=== PATIENT | female | born 2000 | race Caucasian/White ===

== ENCOUNTER 2022-12-26 12:12 | Outpatient (CLI) | payer BC, SELFPAY ==
--- NOTE | 2022-12-26 12:27 | US_ITS ---
WS: [id number] EARLY OBSTETRICAL ULTRASOUND (<14 WEEKS). HISTORY: ENCOUNTER FOR SUPERVISION OF NORMAL FIRST COMPARISON: None available. Single intrauterine gestational sac is identified. Cardiac activity at 153 BPM. [place]-rump length ari sures 1.7 cm which corresponds to a gestation of 8w1d. Normal-appearing yolk sac and amnion demonstra josi. No subchorionic hemorrhage. No free fluid. Normal size ovaries. Corpus luteal cyst associated with the RIGHT ovary measures 1.8 x 1.7 x 1.6 cm. US/US OB <=14 wk fetus w transvag IMPRESSION: 1. Single intrauterine gestation of 8 weeks 1 day with an EDC of 08/06/2023. 2. Normal cardiac activity.
== END 2022-12-26 12:13 | disposition home or self-care (01) ==
LOC: RAD 12:20
PROVIDERS: PCP Family Medicine; Visit Provider Family Medicine
DX: Z34.01 Encounter for supervision of normal first pregnancy, first trimester (principal)
CPT/HCPCS: 76801; 76817

== ENCOUNTER 2023-03-08 13:17 | Outpatient (CLI) | payer OTHER, SELFPAY ==
--- NOTE | 2023-03-08 13:22 | US_ITS ---
WS: [id number] OBSTETRICAL ULTRASOUND COMPLETE HISTORY: ANATOMY CHECK COMPARISON: 12/26/2022 Overall this examination is compromised by maternal body habitus. Single intrauterine gestation in Cephalic presentation. Cervix is not well visualized. Normal amount of amniotic fluid surrounds the fetus. Placenta: Anterior, no previa or abruption. Placenta grade 0 Heart: 153 BPM. 4 chambers are not identified. No outflow tracks submitted. Anatomy: Limited evaluation of intracranial structures and spine. Remaining anatomy is significantly limited. The stomach is identified. measurements: BPD = 4.3 cm = 19w0d; HC = 15.6 cm = 18w4d; AC = 13.1 cm = 18w4d; FL = 2.8 cm = 18w4d; EFW: 249 g. Not available. Biometry is internally concordant. AGA by ultrasound: 18w5d NATALI by ultrasound: 08/04/2023 US/US OB >= 14 weeks fetus [id number] IMPRESSION: 1. Single intrauterine gestation of 18w5d with an NATALI of 08/04/2023. Appropria te growth since the first trimester ultrasound. 2. Overall very limited evaluation of anatomy predominantly due to mater nal body habitus. Consider complete reevaluation of anatomy in 3-4 weeks. Otherwise evaluation by maternal- medicine.
== END 2023-03-08 13:18 | disposition home or self-care (01) ==
PROVIDERS: PCP Family Medicine; Visit Provider Family Medicine
DX: Z34.02 Encounter for supervision of normal first pregnancy, second trimester (principal)
CPT/HCPCS: 76805

== ENCOUNTER 2023-05-14 09:25 | Outpatient (CLI) | payer OTHER, SELFPAY ==
--- NOTE | 2023-05-14 09:31 | US_ITS ---
WS: [email or web address] OBSTETRICAL ULTRASOUND COMPLETE HISTORY: MATERNAL OBESITY COMPLICATING COMPARISON: 03/08/2023 and 12/26/2022 Single intrauterine gestation in breech presentation. Cervix is Closed and normal length. Cervical length is 4.3 cm. Normal amount of amniotic fluid surrounds the fetus. Placenta: Anterior, no previa or abruption. Placenta grade 1 Heart: 141 BPM. 4 chambers are identified. Valve plane is difficult to visualize. Outflow tracts cont inued to be limited. Anatomy: Intracranial structures and spine are normal. kidneys, stomach and urinary bladd er are unremarkable. Abdominal wall, three-vessel cord and cord insertion site are normal. 4 extremities are present. profile: Limited. Gender: Female measurements: BPD = 7.1 cm = 28w4d; 58% HC = 26.8 cm = 29w1d; 56% AC = 24.1 cm = 28w2d; 53% FL = 5.5 cm = 28w6d; 63% EFW: 1252 g. 62% Biometry is internally concordant. AGA by ultrasound: 28w5d NATALI by ultrasound: 08/01/2023 Appropriate growth since the first trimester ultrasound. IMPRESSION: 1. Single intrauterine gestation of 28w5d with an NATALI of 08/01/2023. Appropriate growth since the fi rst trimester ultrasound. No growth asymmetry. 2. Continued limited quality evaluation of the anatomy. Limited visualization of the heart and outfl ow tracts. Overall quality continues to be limited. No abnormality is identified.
== END 2023-05-14 09:26 | disposition home or self-care (01) ==
LOC: RAD 09:26
PROVIDERS: PCP Family Medicine; Visit Provider Family Medicine
DX: O99.213 Obesity complicating pregnancy, third trimester (principal); E66.9 Obesity, unspecified; Z3A.28 28 weeks gestation of pregnancy
CPT/HCPCS: 76816

== ENCOUNTER 2023-05-18 18:57 | Outpatient (CLI) | payer OTHER, SELFPAY ==
[2023-05-18 19:19] VITALS: BP 135/65; PULSE 90
[2023-05-18 19:20] VITALS: RESP 17; TEMP 36.4
[2023-05-18 19:28] VITALS: TEMP 36.4
[2023-05-18 19:32] VITALS: BMI 58.5
[2023-05-18 20:11] VITALS: BP 121/56; PULSE 86
[2023-05-18 20:20] VITALS: BP 121/56; PULSE 86; RESP 16; TEMP 36.4
== END 2023-05-18 20:23 | disposition home or self-care (01) ==
LOC: OPOB 18:58 → OBGYN 18:58
PROVIDERS: PCP Family Medicine; Visit Provider Family Medicine
DX: O36.8190 Decreased fetal movements, unspecified trimester, not applicable or unspecified (principal); Z3A.00 Weeks of gestation of pregnancy not specified; Z91.81 History of falling
CPT/HCPCS: 59025; 99211

== ENCOUNTER 2023-06-12 09:03 | Outpatient (CLI) | payer OTHER, SELFPAY ==
--- NOTE | 2023-06-12 | US_ITS ---
WS: [email or web address] LIMITED OBSTETRICAL ULTRASOUND HISTORY: GROWTH SCAN COMPARISON: 05/14/2023, 12/26/2022 Presentation: Vertex. Cervix: Closed and normal length. Placenta: Anterior, no previa or abruption. Grade: 1 HEART: FHR of 153 BPM. measurements: BPD = 7.9 cm = 31w6d; 33% HC = 30.0 cm = 33w2d; 42% AC = 29.6 cm = 33w4d; 86% FL = 6.2 cm = 32w1d; 36% Normal amniotic fluid. Largest vertical pocket greater than 5 cm. EFW: 2084 g; 70th percentile AGA by ultrasound: 32w5d NATALI by ultrasound: 08/02/2023 IMPRESSION: 1. Single intrauterine gestation of 32 weeks 5 days with an EDC of 08/02/2023. Appropriate growth of the fetus since the first trimester ultrasound. 2. Estimated weight at the 70th percentile. 3. Abdominal circumference at the 86th percentile for age.
== END 2023-06-12 09:04 | disposition home or self-care (01) ==
LOC: RAD 09:05
PROVIDERS: PCP Family Medicine; Visit Provider Family Medicine
DX: Z34.83 Encounter for supervision of other normal pregnancy, third trimester (principal); Z3A.32 32 weeks gestation of pregnancy
CPT/HCPCS: 76816

== ENCOUNTER 2023-07-09 15:30 | Outpatient (CLI) | payer OTHER, SELFPAY ==
[2023-07-09 15:35] VITALS: BMI 64.8
[2023-07-09 15:45] VITALS: RESP 18; TEMP 36.3
[2023-07-09 15:46] VITALS: BP 139/76; PULSE 106
[2023-07-09 16:06] VITALS: BP 113/69; PULSE 105
[2023-07-09 16:12] LABS: Actim Prom Negative; Nitrazine Paper, PH Negative
== END 2023-07-09 16:25 | disposition home or self-care (01) ==
LOC: OPOB 15:36 → OBGYN 15:37
PROVIDERS: Absent Provider Family Medicine; PCP Family Medicine; Visit Provider Family Medicine
DX: O26.899 Other specified pregnancy related conditions, unspecified trimester (principal); Z3A.00 Weeks of gestation of pregnancy not specified; N89.8 Other specified noninflammatory disorders of vagina
CPT/HCPCS: 59025; 83986; 84112; 99211

== ENCOUNTER 2023-07-10 08:55 | Outpatient (CLI) | payer OTHER, SELFPAY ==
--- NOTE | 2023-07-10 09:01 | US_ITS ---
WS: [email or web address] LIMITED OBSTETRICAL ULTRASOUND HISTORY: GROWTH CHECK/3RD TRIMESTER/MATERNAL OBESTIY COMPARISON: 06/12/2023, 12/26/2022 Presentation: Vertex. Cervix: Not visualized. Placenta: Anterior, no previa or abruption. Grade: 1 HEART: FHR of 144 BPM. measurements: BPD = 8.9 cm = 36w0d; 55% HC = 32.5 cm = 36w6d; 37% AC = 32.0 cm = 36w0d; 56% FL = 7.0 cm = 35w5d; 42% Amniotic fluid is normal. EFW: 2825 g; 63% AGA by ultrasound: 36w1d NATALI by ultrasound: 08/06/2023 IMPRESSION: 1. Single intrauterine gestation of 36 weeks 1 day with an EDC of 08/06/2023. 2. Normal growth since the first trimester ultrasound and also the most recent. 3. Normal biometry. No growth restriction or large for gestational age fetus. 4. Estimated weight at the 36th percentile.
== END 2023-07-10 08:56 | disposition home or self-care (01) ==
LOC: RAD 08:55
PROVIDERS: PCP Family Medicine; Visit Provider Family Medicine
DX: Z36.89 Encounter for other specified antenatal screening (principal); O99.213 Obesity complicating pregnancy, third trimester; E66.9 Obesity, unspecified; Z3A.36 36 weeks gestation of pregnancy
CPT/HCPCS: 76816

== ENCOUNTER 2023-07-19 12:39 | Outpatient (CLI) | payer OTHER, SELFPAY ==
--- NOTE | 2023-07-19 12:46 | US_ITS ---
WS: [email or web address] Exam: US OB BPP wo NST [id number] Date/Time of Exam: 07/19/2023 12:51 PM Reason For Exam: MATERNAL OBESITY COMPLICATING Viable intrauterine with single cephalic fetus is noted. Biophysical profile score as follows: Amniotic fluid volume 2 tone 2 body movement 2 breathing movement 2 A total of 8/8 points Heart rate 160 bpm. Anterior placenta without previa or abruption. IMPRESSION: Biophysical profile score of 8 of possible 8 points.
== END 2023-07-19 12:40 | disposition home or self-care (01) ==
LOC: RAD 12:39
PROVIDERS: PCP Family Medicine; Visit Provider Family Medicine
DX: O99.210 Obesity complicating pregnancy, unspecified trimester (principal); Z3A.00 Weeks of gestation of pregnancy not specified
CPT/HCPCS: 76819

== ENCOUNTER 2023-07-19 13:25 | Outpatient (CLI) | payer OTHER, SELFPAY ==
[2023-07-19 13:30] VITALS: BMI 64.7
[2023-07-19 13:38] VITALS: BP 133/66; PULSE 106
[2023-07-19 13:59] VITALS: BP 134/66; PULSE 98
[2023-07-19 14:39] VITALS: BP 134/66; PULSE 98; RESP 18
== END 2023-07-19 14:20 | disposition home or self-care (01) ==
LOC: OPOB 13:28 → OBGYN 13:29
PROVIDERS: PCP Family Medicine; Visit Provider Family Medicine
DX: O99.210 Obesity complicating pregnancy, unspecified trimester (principal); Z3A.00 Weeks of gestation of pregnancy not specified
CPT/HCPCS: 59025; 99211

== ENCOUNTER 2023-07-22 13:28 | Inpatient (IN) | payer OTHER, SELFPAY ==
[2023-07-22] VITALS (129 sets, daily range): BP systolic 80–145; BP diastolic 44–94; PULSE 74–133; RESP 16–18; TEMP 35.9–36.9; O2SAT 99–100; BMI 64.3
[2023-07-22 09:10] LABS: Basophils % 0.2 %; Eosinophils % 0.1 %; Hematocrit 34.5 % (36-47); Lymphocytes # 1.3 10^3/uL (0.8-4.8); Lymphocytes % 10.4 %; Mean Corpuscular HGB Conc 31.9 g/dL (30-55); Mean Corpuscular Hemoglobin 26.6 pg (27-33); Mean Corpuscular Volume 83.5 fl (85-98); Mean Platelet Volume 11.4 fL (7.4-10.4); Monocytes # 1.1 10^3/uL (0.2-0.9); Monocytes % 8.5 %; Neutrophils # 9.93 10^3/uL (1.8-7.7); Neutrophils % 80.4 %; Nucleated Red Blood Cells % 0 %; Platelet Count 339 10^3/cmm (157-399); Red Blood Count 4.13 10^6/uL (3.85-5.65); Red Cell Distribution Width 14.2 % (12.1-15.1); White Blood Count 12.36 10^3/uL (3.29-11.43)
[2023-07-22] MEDS: oxytocin 30 UNIT/500 ML BAG IV (09:30)
[2023-07-22] MEDS: dextrose 5%-lactated ringers 1,000 ML 125 ML IV ×3 (09:30→22:52)
[2023-07-22] MEDS: lactated ringers 1,000 ML 999 ML IV (12:15)
[2023-07-22] MEDS: ROPivacaine syringe 100 MG/50 ML SYRINGE 13 MG EPIDURAL ×4 (12:16→22:04)
--- NOTE | 2023-07-22 12:43 | P.HP_ITS ---
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 Reports irregular contractions starting last night followed by a large gush of clear fluids at about 6:30 this morning. Following she continued to leak fluids and decided to come in. Contractions stopped after her water broke. PMHx includes depression/anxiety and obesity. course complicated by obesity. Denies vaginal bleeding. Good movement. care was good and starting in first trimester. On presentation to L&D found to be grossly ruptured with clear fluids. Present Details : 1 Labs Blood type OB HPI: A (+) positive Rubella: Immune RPR: Negative GBS: Negative HBsAG: Negative Other Lab Information: HCB Ab NR Rubella immune HIV negative GC/chlam negative Initial H/H 13.8/41.4 UCx negative Pap smear NILM Early 1 hr GTT 80 1 hr GTT 164 3 hr GTT 92/105/164/60 3rd trimester H/H 11.5/34.6 Review of Systems 2 Const: Denies: fever(s) or chills Card: Denies: chest pain or palpitations Resp: Denies: dyspnea or productive cough Skin/Breast: Denies: rash or pruritus Medications/Allergies Home Medications Medication Instructions Recorded Confirmed Last Taken Type Lexapro 05/18/23 07/22/23 06:45 History 1 tab PO DAILY 05/18/23 05/18/23 07/22/23 06:45 History bupropion HCl 05/18/23 07/22/23 06:45 History Pepcid 07/22/23 07/22/23 06:45 History Allergies Allergy/AdvReac Type Severity Reaction Status Date / Time No Known Allergies Allergy Verified 05/18/23 21:34 History History History 2 1 Term Miscarriages/Ectopic Living Children 0 Vitals/I&O/Wt Last Vital Signs Temp 98.3 F 07/22/23 11:34 Pulse 102 H 07/22/23 12:38 Resp 18 07/22/23 08:00 BP 145/70 07/22/23 12:38 O2 Del Method Room Air 07/22/23 08:00 07/21/23 07/22/23 07/22/23 22:59 06:59 14:59 Intake Total 7.0 / 7.0 Balance 7.0 / 7.0 Weight last 48 hrs Weight 375 lb Physical Exam 2 Const: COMMON NORMALS: no acute distress and alert OTHER: obese Resp: COMMON NORMALS: normal respiratory effort, No retractions and clear to auscultation bilaterally Cardio: COMMON NORMALS: no JVD, regular rate, regular rhythm, S1 normal heart sound present and S2 normal heart sound present : OTHER: uterine fundus consistent with dates Extremity: OTHER: trace LE edema Psych: COMMON NORMALS: mental status grossly normal, normal affect and speech normal Data 07/22/23 08:57 Results Labs OB ([facility]): 2 Obstetrics US 07/10/23 Obstetrics US/Biophysical Profile Blood Type A Positive 07/22/23 Antibody Screen Negative 07/22/23 Hct 34.5 % (36-47) L 07/22/23 Hgb 11.00 g/dL (11.27-16.99) L 07/22/23 Rho(D) Type Rh positive 07/22/23 Plt Count 339 10^3/cmm (157-399) 07/22/23 Hep Bs Antibody 3.5 (11.5-1000) L 07/25/22 Rubella IgG Antibody 177.3 IU/mL (0.0-10.0) H 07/25/22 VZV IgG Antibody 330.00 index 07/25/22 A&P Assessment and plan (1) Term : (2) Obesity affecting in third trimester: (3) Spontaneous rupture of amniotic membranes: Plan 23yo at 37w6d admitted for SROM. Routine CBC, Type and Screen. Start pitocin. Continuous EFM. Fentanyl protocol for pain, may have epidural when desired. Category 1 FHT. Attestations 2 Medical Necessity Statement*: Ashley Fam's hospital stay will require greater than 2 midnights for routine labor and delivery and care. Coding Level of Care Code Acute Code for Chg Fwd Diagnoses Term Z34.90 Obesity affecting in third trimester O99.213 Spontaneous rupture of amniotic membranes
--- NOTE | 2023-07-22 13:13 | P.ANESASSM_ITS ---
Pre-Anesthetic Assessment Height/Weight: Height 1.63 m Weight 170.097 kg Temp Pulse Resp BP Pulse Ox O2 Del Method 98.3 F 88 18 90/54 100 Room Air 07/22/23 11:34 07/22/23 13:08 07/22/23 08:00 07/22/23 13:08 07/22/23 12:58 07/22/23 08:00 Familial anesthetic complications: none Was Beta Gaby taken within 24 hours: N/A Was Clonidine taken within 24 hours: N/A Social No alcohol and No tobacco Exam alert, oriented x 3, clear to auscultation bilaterally and regular rate & rhythm Airway Submandibular: within normal limits Cervical ROM: within normal limits Mallampati: Class II Dentition: full Metabolic Morbid Obesity Anesthetic Plan ASA status: 3 Anesthesia: Regional (specify below) (Labor epidural) Medications/Allergies Home Medications Medication Instructions Recorded Confirmed Last Taken Type Lexapro 05/18/23 07/22/23 06:45 History 1 tab PO DAILY 05/18/23 05/18/23 07/22/23 06:45 History bupropion HCl 05/18/23 07/22/23 06:45 History Pepcid 07/22/23 07/22/23 06:45 History Allergies Allergy/AdvReac Type Severity Reaction Status Date / Time No Known Allergies Allergy Verified 05/18/23 21:34 Current Medications Generic Name Dose Route Start Last Admin Trade Name Freq PRN Reason Stop Dose Admin Dextrose/Lactated Ringer's 1,000 mls @ 125 mls/hr 07/22/23 08:15 07/22/23 09:30 Dextrose 5%-Lactated Ringers IV 125 mls/hr .Q8H MARCOS Administration Oxytocin 30 unit in 500 mls @ 1 mls/hr 07/22/23 09:00 07/22/23 11:30 Pitocin IV 6 milliunit/min .Q24H MARCOS 6 mls/hr Titration Protocol 1 MILLIUNIT/MIN Lactated Ringer's 1,000 mls @ 999 mls/hr 07/22/23 12:03 07/22/23 12:15 Lactated Ringers IV 999 mls/hr .Q1H1M PRN Administration See label comments Ropivacaine 100 mg in 50 mls @ 10 mls/hr 07/22/23 12:15 07/22/23 12:16 Naropin Syringe EPIDURAL 13 mls/hr .Q5H MARCOS Administration PFSH Anesthesia Female Reproductive History : 1 Data Anesthesia 07/22/23 08:57 Short CBC 07/22/23 Range/Units 08:57 WBC 12.36 H (3.29-11.43) 10^3/uL Hgb 11.00 L (11.27-16.99) g/dL Hct 34.5 L (36-47) % MCV 83.5 L (85-98) fl Plt Count 339 (157-399) 10^3/cmm Neut % (Auto) 80.4 % Neut # (Auto) 9.93 H (1.8-7.7) 10^3/uL Blood Bank 07/22/23 08:57 Blood Type A Positive Rho(D) Type Rh positive Antibody Screen Negative Cardiac Studies: 2 No Data to Display Anesthesia Procedures Epidural Time Out Performed: Yes Consents Signed: Procedure Consent Consent: requested by attending/covering physician, from patient, risks and benefits reviewed and patient agrees to proceed Lumbar Level: L3-L4 Epidural position: sitting Epidural procedure: sterile prep of area, 1% lidocaine to numb the area, 18 g needle, neg for paresthesia, test dose given, 1.5% xylocaine 1:200k epi, placed PCEA, no systemic response, sterile dressing applied and 0.2% Ropiavacaine @ mls/hr (13) Additional Comments: SHILOH at 9cm, cath at 14cm, bolused 5mls of 2% lido PF
[2023-07-22] MEDS: ePHEDrine 50 mg/mL Inj 10 MG IVP (13:19)
[2023-07-22] MEDS: ondansetron 2 mg/ML SDV 2 mL 4 MG IVP ×2 (13:25→19:38)
--- NOTE | 2023-07-22 14:38 | PC.NURSE ---
cassette started out with only 25 in it, unsure how it leaked out before placed in pump, witnessed by yaquelin stapleton rn.
[2023-07-23] VITALS (119 sets, daily range): BP systolic 92–147; BP diastolic 50–87; PULSE 66–190; RESP 17; TEMP 36.4–36.8; O2SAT 93–100
[2023-07-23] MEDS: ROPivacaine syringe 100 MG/50 ML SYRINGE 13 MG EPIDURAL ×6 (00:50→18:51)
[2023-07-23] MEDS: ondansetron 2 mg/ML SDV 2 mL 4 MG IVP (00:54)
[2023-07-23] MEDS: dextrose 5%-lactated ringers 1,000 ML 125 ML IV ×2 (07:28→14:53)
[2023-07-23] MEDS: acetaminophen 325 mg Tablet 650 MG PO (08:12)
[2023-07-23] MEDS: oxytocin 30 UNIT/500 ML BAG 27 UNIT IV (11:28)
--- NOTE | 2023-07-23 17:34 | PM.OBGYPN ---
RN TRANSITIONAL Subjective Subjective: Interval history: Doing well. Epidural has been effective all day. Feeling more pressure in her bottom. Denies any new complaints. Has been changing positions regularly. Labor: Station: 0 Amniotic Membrane Status: Ruptured Monitor Mode: External Contraction Pattern: Regular Vitals/I&O/Wt Last Vital Signs Temp 97.5 F L 07/23/23 10:15 Pulse 78 07/23/23 17:24 Resp 16 07/22/23 18:00 BP 131/81 07/23/23 17:24 Pulse Ox 100 07/22/23 12:58 O2 Del Method Room Air 07/22/23 08:00 07/23/23 07/23/23 07/23/23 06:59 14:59 22:59 Intake Total 1100 / 2955.25 1437.783 / 1437.783 50 / 1487.783 Output Total 900 / 900 Balance 200 / 2055.25 1437.783 / 1437.783 50 / 1487.783 Weight last 48 hrs Weight 375 lb Physical Exam Const: COMMON NORMALS: no acute distress and alert OTHER: obese Neck/C-Spine: COMMON NORMALS: no JVD Resp: COMMON NORMALS: normal respiratory effort, No retractions and clear to auscultation bilaterally AUSCULTATION: clear to auscultation bilaterally Cardio: COMMON NORMALS: no JVD, regular rate, regular rhythm, S1 normal heart sound present and S2 normal heart sound present RATE: regular rate RHYTHM: regular rhythm HEART SOUNDS: S1 normal heart sound present and S2 normal heart sound present : OTHER: uterine fundus consistent with dates Extremity: OTHER: trace LE edema Neuro: SENSORIUM/ORIENTATION: Yes alert Psych: COMMON NORMALS: mental status grossly normal, normal affect and speech normal SPEECH: Yes normal speech Urinary Catheter Management: [place]: Cath Placed During This Visit: yes Reason for Continuing Indwelling Catheter: Required Immobilization for Trauma or Surgery or Anesthesia Urinary Catheter Date of Insertion: 07/22/23 Urinary Catheter Time of Insertion: 13:00 Data 07/22/23 08:57 A&P Assessment and plan (1) Term : (2) Obesity affecting in third trimester: (3) Spontaneous rupture of amniotic membranes: Plan 23yo at 38w0d admitted for SROM. Has an epidural. On pitocin. She has made slow but steady change throughout the day and has been free of s/sx of infection. Contractions have varied q2-5 minutes. Category 1 FHT. Have had some difficulty maintaining continuous EFM. Expectant management. Attestations Medical Necessity Statement*: [facility]'s hospital stay will require greater than 2 midnights for routine labor and delivery and care. Coding Level of Care Code Acute Code for Chg Fwd Diagnoses Term Z34.90 Obesity affecting in third trimester O99.213 Spontaneous rupture of amniotic membranes
[2023-07-23] MEDS: sodium chloride 0.9% 1,000 ML 999 ML IV (20:30)
[2023-07-23] MEDS: sodium chloride 0.9% 100 mL Bag 50 ML IV (20:30)
[2023-07-23 20:42] LABS: Basophils % 0.2 %; Eosinophils % 0.1 %; Hematocrit 30.8 % (36-47); Lymphocytes # 1.2 10^3/uL (0.8-4.8); Lymphocytes % 8.9 %; Mean Corpuscular HGB Conc 31.8 g/dL (30-55); Mean Corpuscular Hemoglobin 26.8 pg (27-33); Mean Corpuscular Volume 84.2 fl (85-98); Mean Platelet Volume 11.7 fL (7.4-10.4); Monocytes # 1.2 10^3/uL (0.2-0.9); Monocytes % 8.3 %; Neutrophils # 11.52 10^3/uL (1.8-7.7); Neutrophils % 82.1 %; Nucleated Red Blood Cells % 0 %; Platelet Count 272 10^3/cmm (157-399); Red Blood Count 3.66 10^6/uL (3.85-5.65); Red Cell Distribution Width 14.3 % (12.1-15.1); White Blood Count 14.01 10^3/uL (3.29-11.43)
[2023-07-23] MEDS: ceFAZolin 2,000 MG in sodium chloride 0.9% (plus) 50 ML 100 MG IV (21:09)
[2023-07-23] MEDS: ceFAZolin 1,000 MG in sodium chloride 0.9% (plus) 50 ML 100 MG IV (21:09)
--- NOTE | 2023-07-23 22:37 | PM.DELIVERY ---
Delivery Note: Date of delivery: July 23, 2023 Pre-delivery diagnoses: Term Prelabor rupture of membranes Post-delivery diagnoses: Delivery of viable female Cord avulsion with manual extraction of placenta hemorrhage Prolonged rupture of membranes Procedure: Spontaneous Vaginal Delivery Delivering Physician: Rylee Vaz DO Estimated blood loss (mL): 1,000 Pre-Delivery Course: Patient was admitted on 07/22 at 37 weeks and 6 days after SROM at home with clear fluids. She was then started on Pitocin and made gradual change to approximately 5/90/-3 with subsequently little change overnight. In a.m. on 07/23 Pitocin was increased to max dose 30 units and following patient progressed slowly to complete. Noted to have difficulty with continuous external monitoring however all monitoring noted was category 1. Delivery: Patient progressed to complete. Patient placed in lithotomy position. Patient pushed with adequate effort. Head delivered in OA position, no nuchal cord was present. Shoulders and rest of body delivered without difficulty with adequate epidural anesthesia. Mouth and nares bulb suctioned. placed on maternal abdomen. Cord clamped and cut after 1 minute delay. With active management of third stage cord avulsion occurred at approximately 20 minutes after delivery. Following manual extraction of the placenta was attempted however entire placenta was unable to be from the uterine wall and at that time on-call AFFILIATE MARKETING SPECIALIST Dr. Holland was called and Dr. Trevino already present on labor and delivery presented to room. Dr. Trevino attempted manual extraction of placenta as well and confirmed that he was unable to separate placenta from the uterine wall. Noted to be with moderate amount of bleeding and patient tachycardia with decrease in BP. 2 units of O- blood were ordered along with [address] Holland presented and decision was made to transfer patient to main OR for further attempt at manual extraction and evaluation under general anesthesia. Please see Dr. Holland's note for further details. Female born at 38 weeks at 8:09 PM with 8/8 weighing 7 pounds 6 ounces and measuring 20 in length Umbilical cord noted to be three-vessel and placenta was removed manually by Dr. Holland in the OR?see further details per Dr. Holland's note. Complications: Maternal hemorrhage and retained placenta none Post-Delivery Status: Britany device placed intraoperatively by Dr. Holland as well and will be placed overnight. She will receive 2 units PRBC and 1 unit of FFP. History History History 1 Term 1 Miscarriages/Ectopic Living Children 1 Coding Level of Care Code Acute Code for Chg Fwd
--- NOTE | 2023-07-23 22:44 | P.PCN_ITS ---
PACU note Narrative: VSS, Good respiratory effort, report to DERRICK ENGINEER Exam: awake
--- NOTE | 2023-07-23 22:44 | PM.PACU ---
PACU note Narrative: VSS, Good respiratory effort, report to SADDLE STITCHER Exam: awake
--- NOTE | 2023-07-23 22:50 | PM.OP ---
Operative Report Date of procedure: July 23, 2023 Pre-op diagnosis: Retained placenta Post-op diagnosis: Retained palcenta Post-op findings: Placenta firmly attached to fundus Procedure done: Manual extarction Placement of BRITANY device Surgeon: Felipe Holland MD Estimated blood loss (mL): 500 Procedure: Called by nurse at request of Dr. Chen requesting assitance with her patient. The patient is a 23-year-old who delivered via vaginal delivery. She had a retained placenta that required manual removal at bedside but was unsuccessful. At the end of this particular delivery, approximately 600 mL of blood loss was noted and the mother was displaying some tachycardia in the 110s and some pallor. The patient was taken to the OR, where general anesthesia was administered for manual extraction of placenta for possible hysterectomy if placenta increta encountered. She was prepped and draped in a normal sterile fashion. Betadine was used to sterilize the area. She had already been receiving Ancef. It was determined at this point that the bleeding episode that she encountered was secondary to the retained placenta. Manual extraction of the placenta was performed until all of placental tissue was extracted and the uterine cavity was felt it had no placental tissue. Then the Britany device was place in uterus without complications. The patient tolerated the procedure well, and sponge, lap and needle count were correct times two. good condition.. She had received her first units of packed red blood cells before the procedure along with lactated Ringer's. The patient was taken back to the L&D vitale in good condition and she will be followed closely overnight.
[2023-07-24] VITALS (97 sets, daily range): BP systolic 90–140; BP diastolic 50–105; PULSE 64–110; RESP 16–18; TEMP 36.2–36.8; O2SAT 92–97
[2023-07-24] MEDS: ketorolac 30 mg/mL INJ IVP (01:35)
[2023-07-24] MEDS: sodium chloride 0.9% (100 ml) 100 ML 125 ML (01:36)
[2023-07-24] MEDS: sodium chloride 0.9% 100 mL Bag 50 ML IV (01:38)
--- NOTE | 2023-07-24 03:10 | PC.NURSE ---
This va underwriter removed epidural catheter at approximately 2250. Pt was put in same position as it was placed in, catheter tip intact. Pt tolerated well with no complications regarding removal. Covered area with bandaid.
--- NOTE | 2023-07-24 04:50 | PC.NURSE ---
Pt set up in foot pedals for vaginal delivery. RN's Erinn Dumont, Physician Dr. Vaz, and benjamin Iqbal at bedside. Female born at 2011 . was then placed on mothers chest. Cord was clamped and cut after one minute by physician where infant was then taken to the warmer by Erinn Jimenes to suction infant. Dr. Vaz proceeded to deliver placenta. At approximately 2030 umbilical cord detached from placenta. Physician stated to this real estate underwriter to give fundal pressure and told mother she would be manually removing placenta. After several attempts to manually extract placenta, Dr. Trevino entered room to assist. Dr. Trevino was unable to extract placenta. Dr. Trevino told Dr. Vaz to call Dr. Holland so we could transfer her to OR to have placenta manually extracted under general anesthesia. webbing supervisor was then called to get an OR team together. Anesthesia Gume Aldo was called and blood bank was called to send up 2 units of emergency PRBC's. Dr. Trevino stated to this real estate underwriter to call lab and get 2 units of emergency FFP. A second IV was placed by Jus Perdomo RN. SCD's were placed on patient. Orders were received for 3g Cefazolin and started. First unit of PRBC's were started. Vital signs were taken every [address] Holland arrived on the floor got consent to do surgery. Dr. Holland then left to get OR ready. Patient transferred with Erinn Dumont, Dr. Vaz, Dr. Trevino, and warehouse attendant Mar Brasher RN at approximately 2120.
--- NOTE | 2023-07-24 05:22 | PC.NURSE ---
Patient came to OB for PACU at 2239 with this typewriter mechanic. Patient hooked up to vital's machine for every 5 minutes. Suction was hooked up to MARGARET and suction set to 80. Dr. Vaz was at bedside to monitor the blood that came through the tube. Blood was visualized coming through the tube but did not fill the entire tubing up. Dr. Vaz stated to leave the MARGARET in and suction set to 80 for the remainder of the night and she would be back in the morning to assess.
[2023-07-24 06:44] LABS: Basophils # 0.1 10^3/uL (0.0-0.1); Basophils % 0.3 %; Eosinophils # 0.1 10^3/uL (0.0-0.8); Eosinophils % 0.4 %; Hematocrit 31.5 % (36-47); Lymphocytes # 1.5 10^3/uL (0.8-4.8); Lymphocytes % 8.2 %; Mean Corpuscular HGB Conc 32.4 g/dL (30-55); Mean Corpuscular Hemoglobin 28.1 pg (27-33); Mean Corpuscular Volume 86.8 fl (85-98); Mean Platelet Volume 11.4 fL (7.4-10.4); Monocytes # 1.2 10^3/uL (0.2-0.9); Monocytes % 6.6 %; Neutrophils # 15.42 10^3/uL (1.8-7.7); Nucleated Red Blood Cells % 0 %; Platelet Count 270 10^3/cmm (157-399); Red Blood Count 3.63 10^6/uL (3.85-5.65); Red Cell Distribution Width 14.5 % (12.1-15.1); White Blood Count 18.35 10^3/uL (3.29-11.43)
[2023-07-24 06:55] LABS: Partial Thromboplastin Time 29.6 SECONDS (23.9-36.7)
[2023-07-24 07:32] LABS: Fibrinogen 644 mg/dL (174-498)
--- NOTE | 2023-07-24 09:21 | PC.NURSE ---
Physician in room, suction to vicky turned off and 120ml of fluid pulled out of vicky @ 9411
[2023-07-24] MEDS: prenatal vitamin Capsule 1 CAP PO (09:41)
[2023-07-24] MEDS: ferrous sulfate EC 325 mg Tablet PO (09:42)
[2023-07-24] MEDS: ibuprofen 800 mg tablet PO ×3 (09:42→20:32)
[2023-07-24] MEDS: docusate sodium 100 mg Capsule PO ×2 (09:42→20:32)
--- NOTE | 2023-07-24 10:18 | ANE.PACU2 ---
Inpatient post-anesthesia follow up: Airway intact: Yes Vital signs: Temperature 97.6 F Pulse Rate 71 Respiratory Rate 18 Blood Pressure 110/60 Pulse Oximetry 96 Oxygen Delivery Me thod Room Air Oxygen Flow Rate Fraction of Inspir ed Oxygen Hydration adequate: Yes Nausea and vomiting: No Pain level: 2 Mental status: Baseline Additional Comments: Anes start 07/22/23 4275 Anes end 07/23/23 6520
[2023-07-24] MEDS: buPROPion XL (24 HR) 150 mg Tablet PO (11:53)
[2023-07-24] MEDS: escitalopram 10 mg Tablet 5 MG PO (11:53)
--- NOTE | 2023-07-24 12:27 | PM.OBGYPN ---
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 Britany output has been minimal- through tubing only. Her pain has been well controlled and reports she is feeling well. Catheter remains in place. No trial of voiding or ambulation yet. is going well. Labor: Station: +2 Amniotic Membrane Status: Ruptured Monitor Mode: External Contraction Pattern: Irregular Vitals/I&O/Wt Last Vital Signs Temp 97.6 F 07/24/23 01:35 Pulse 81 07/24/23 11:59 Resp 18 07/24/23 01:35 BP 116/71 07/24/23 11:59 Pulse Ox 96 07/24/23 02:06 O2 Del Method Room Air 07/24/23 01:35 07/23/23 07/24/23 07/24/23 22:59 06:59 14:59 Intake Total 328.2 / 0876.169 6114 / 4658.983 Output Total 100 / 100 1500 / 1500 Balance 328.2 / 8547.218 2096 / 4558.983 -1500 / -1500 Physical Exam Const: COMMON NORMALS: no acute distress and alert OTHER: obese Neck/C-Spine: COMMON NORMALS: no JVD Resp: COMMON NORMALS: normal respiratory effort, No retractions and clear to auscultation bilaterally AUSCULTATION: clear to auscultation bilaterally Cardio: COMMON NORMALS: no JVD, regular rate, regular rhythm, S1 normal heart sound present and S2 normal heart sound present RATE: regular rate RHYTHM: regular rhythm HEART SOUNDS: S1 normal heart sound present and S2 normal heart sound present : OTHER: Uterine fundus is firm and at the umbilicus Extremity: OTHER: trace LE edema Neuro: SENSORIUM/ORIENTATION: Yes alert Psych: COMMON NORMALS: mental status grossly normal, normal affect and speech normal SPEECH: Yes normal speech Urinary Catheter Management: Dunaway: Cath Placed During This Visit: yes Reason for Continuing Indwelling Catheter: Required Immobilization for Trauma or Surgery or Anesthesia Urinary Catheter Date of Insertion: 07/22/23 Urinary Catheter Time of Insertion: 13:00 Data 07/24/23 06:29 A&P Assessment and plan (1) hemorrhage: (2) Retained placenta: (3) Spontaneous vaginal delivery: (4) Prolonged rupture of membranes, delivered: Plan PPD #1 s/p at term complicated by retained placenta requiring manual extraction in OR with Dr. Holland and hemorrhage. She has received 2 units PRBC and 1 unit FFP- Hemoglobin this AM is 10.2. Britany device in place this AM and seal removed with observation following without increased bleeding noted and device removed at approximately 12:20pm. May d/c urinary catheter if no increase in bleeding 1 hour following Britany removal. Encourage ambulation following catheter d/c. Resume regular diet. ROM approx 38 hours prior to delivery- she has been free of s/sx of infection and did receive 1 dose 3g ancef pre-operatively. Repeat CBC in AM. Attestations Medical Necessity Statement*: [facility]'s hospital stay will require greater than 2 midnights for labor and delivery and care. Coding Level of Care Code Acute Code for Chg Fwd Diagnoses hemorrhage O72.1 Retained placenta O73.0 Spontaneous vaginal delivery O80 Prolonged rupture of membranes, delivered
--- NOTE | 2023-07-24 13:06 | PC.NURSE ---
Physician at bedside, vicky removed @[phone]
[2023-07-24] MEDS: lanolin oint 7 gm 1 APPLIC TOPICAL (14:52)
[2023-07-24] MEDS: benzocaine-menthol 78 gm Canister 1 SPRAY TOPICAL (14:52)
[2023-07-25] VITALS (7 sets, daily range): BP systolic 111–136; BP diastolic 56–78; PULSE 62–94; RESP 16–18; TEMP 36.5–36.8; O2SAT 94–97
[2023-07-25 09:04] LABS: Basophils # 0.1 10^3/uL (0.0-0.1); Basophils % 0.5 %; Eosinophils # 0.3 10^3/uL (0.0-0.8); Eosinophils % 2.1 %; Hematocrit 29.8 % (36-47); Lymphocytes # 3.9 10^3/uL (0.8-4.8); Lymphocytes % 31.5 %; Mean Corpuscular HGB Conc 32.9 g/dL (30-55); Mean Corpuscular Hemoglobin 28.2 pg (27-33); Mean Corpuscular Volume 85.6 fl (85-98); Mean Platelet Volume 11.3 fL (7.4-10.4); Monocytes # 0.9 10^3/uL (0.2-0.9); Monocytes % 7.5 %; Neutrophils # 7.15 10^3/uL (1.8-7.7); Neutrophils % 57.8 %; Nucleated Red Blood Cells % 0.2 %; Platelet Count 304 10^3/cmm (157-399); Red Blood Count 3.48 10^6/uL (3.85-5.65); Red Cell Distribution Width 14.6 % (12.1-15.1); White Blood Count 12.37 10^3/uL (3.29-11.43)
[2023-07-25] MEDS: ferrous sulfate EC 325 mg Tablet PO (09:59)
[2023-07-25] MEDS: ibuprofen 800 mg tablet PO ×3 (09:59→21:31)
[2023-07-25] MEDS: prenatal vitamin Capsule 1 CAP PO (10:00)
[2023-07-25] MEDS: docusate sodium 100 mg Capsule PO ×2 (10:00→21:31)
--- NOTE | 2023-07-25 18:10 | PM.OBGYDC ---
Discharge Providers PERFORMING [employer] RO[address] MANAGER Date of Admission: 07/22/23 13:28 Date of Discharge: 07/25/23 Attending Provider at Admission: Rylee Vaz DO Attending Provider at Discharge: Rylee Vaz DO Primary Care Provider: Rylee Vaz DO Diagnoses at Discharge Discharge Diagnosis (1) hemorrhage: Status: Acute (2) Retained placenta: Status: Acute (3) Spontaneous vaginal delivery: Status: Acute (4) Prolonged rupture of membranes, delivered: Status: Acute Reason for Visit Reason for Visit: possible srom Hospital Course Hospital Course Pre-Delivery Course: Patient was admitted on 07/22 at 37 weeks and 6 days after SROM at home with clear fluids. She was then started on Pitocin and made gradual change to approximately 5/90/-3 with subsequently little change overnight. In a.m. on 07/23 Pitocin was increased to max dose 30 units and following patient progressed slowly to complete. Noted to have difficulty with continuous external monitoring however all monitoring noted was category 1. Delivery: Patient progressed to complete. Patient placed in lithotomy position. Patient pushed with adequate effort. Head delivered in OA position, no nuchal cord was present. Shoulders and rest of body delivered without difficulty with adequate epidural anesthesia. Mouth and nares bulb suctioned. placed on maternal abdomen. Cord clamped and cut after 1 minute delay. With active management of third stage cord avulsion occurred at approximately 20 minutes after delivery. Following manual extraction of the placenta was attempted however entire placenta was unable to be from the uterine wall and at that time on-call PERFORMING [employer] RO[employer] MANAGER Dr. Holland was called and Dr. Trevino already present on labor and delivery presented to room. Dr. Trevino attempted manual extraction of placenta as well and confirmed that he was unable to separate placenta from the uterine wall. Noted to be with moderate amount of bleeding and patient tachycardia with decrease in BP. 2 units of O- blood were ordered along with [address] Holland presented and decision was made to transfer patient to main OR for further attempt at manual extraction and evaluation under general anesthesia. Please see Dr. Holland's note for further details. Female born at 38 weeks at 8:09 PM with 8/8 weighing 7 pounds 6 ounces and measuring 20 in length Umbilical cord noted to be three-vessel and placenta was removed manually by Dr. Holland in the OR?see further details per Dr. Holland's note. Complications: Maternal hemorrhage and retained placenta Infant none Patient underwent on 07/23/2023 complicated by retained placenta requiring manual extraction in the OR as above. Of note she was examined for lacerations in the OR by Dr. Holland and noted to be intact. course following manual extraction was uncomplicated. Vaginal bleeding was minimal after removal of Britany device. Posttransfusion hemoglobin of 10.2 and trended to 9.8 the following day. Total she received 2 units packed red blood cells and 1 unit FFP. She is discharged on once daily iron supplementation as well. Following delivery patient ambulated well, tolerated a normal diet without nausea or vomiting. Pain was well-controlled on PO medications, breast-feeding exclusively, no leg/calf pain, no calf/leg swelling, normal urination, passing gas and normal bowel movement. Vaginal bleeding thin lochia. Follow-up planned for 2 and 6 weeks . Warning signs for endometritis, pre-eclampsia, DVT/PE, mastitis were reviewed, discussed additional warning signs including increased vaginal bleeding, worsening abdominal pain. Pelvic rest and activity precautions reviewed as well. She is discharged on 07/25/2023 in stable condition. Information Peripartum Data: Infant Delivery Method: Vaginal Laceration description: None Physical Exam Const: COMMON NORMALS: no acute distress and alert OTHER: obese Neck/C-Spine: COMMON NORMALS: no JVD Resp: COMMON NORMALS: normal respiratory effort, No retractions and clear to auscultation bilaterally AUSCULTATION: clear to auscultation bilaterally Cardio: COMMON NORMALS: no JVD, regular rate, regular rhythm, S1 normal heart sound present and S2 normal heart sound present RATE: regular rate RHYTHM: regular rhythm HEART SOUNDS: S1 normal heart sound present and S2 normal heart sound present : OTHER: Uterine fundus is firm and at the umbilicus Extremity: OTHER: trace LE edema Neuro: SENSORIUM/ORIENTATION: Yes alert Psych: COMMON NORMALS: mental status grossly normal, normal affect and speech normal SPEECH: Yes normal speech Urinary Catheter Management: Dunaway: Cath Placed During This Visit: yes, but has since been removed by the nurse Reason for Continuing Indwelling Catheter: Decision to DC Catheter Urinary Catheter Date of Insertion: 07/22/23 Urinary Catheter Time of Insertion: 13:00 Date Urinary Catheter Removed: 12/20/23 Time Urinary Catheter Discontinued: 14:45 History History History 1 Term 1 Miscarriages/Ectopic Living Children 1 Discharge Data Studies Completed and Pending Pending at discharge Category Date Time Status Pathology: Surgical [PTH] Routine Pth 07/23/23 22:21 Received Laboratory Results WBC 12.37 10^3/uL (3.29-11.43) H 07/25/23 08:52 RBC 3.48 10^6/uL (3.85-5.65) L 07/25/23 08:52 Hgb 9.80 g/dL (11.27-16.99) L 07/25/23 08:52 Hct 29.8 % (36-47) L 07/25/23 08:52 MCV 85.6 fl (85-98) 07/25/23 08:52 MCH 28.2 pg (27-33) 07/25/23 08:52 MCHC 32.9 g/dL (30-55) 07/25/23 08:52 RDW 14.6 % (12.1-15.1) 07/25/23 08:52 Plt Count 304 10^3/cmm (157-399) 07/25/23 08:52 MPV 11.3 fL (7.4-10.4) H 07/25/23 08:52 Neut % (Auto) 57.8 % 07/25/23 08:52 Lymph % (Auto) 31.5 % 07/25/23 08:52 Loup % (Auto) 7.5 % 07/25/23 08:52 Eos % (Auto) 2.1 % 07/25/23 08:52 Baso % (Auto) 0.5 % 07/25/23 08:52 Neut # (Auto) 7.15 10^3/uL (1.8-7.7) 07/25/23 08:52 Lymph # (Auto) 3.9 10^3/uL (0.8-4.8) 07/25/23 08:52 Loup # (Auto) 0.9 10^3/uL (0.2-0.9) 07/25/23 08:52 Eos # (Auto) 0.3 10^3/uL (0.0-0.8) 07/25/23 08:52 Baso # (Auto) 0.1 10^3/uL (0.0-0.1) 07/25/23 08:52 Nucleated RBC % (auto) 0.2 % 07/25/23 08:52 Nucleated RBCs # 0.0 /100WBC 07/25/23 08:52 APTT 29.6 SECONDS (23.9-36.7) 07/24/23 06:29 Fibrinogen 644 mg/dL (174-498) H 07/24/23 06:29 Blood Type A Positive 07/22/23 08:57 Rho(D) Type Rh positive 07/22/23 08:57 Antibody Screen Negative 07/22/23 08:57 Crossmatch See Detail 07/22/23 08:57 Vitals Last Vital Signs Temp 97.7 F 07/25/23 15:51 Pulse 81 07/25/23 15:48 Resp 16 07/25/23 04:21 BP 121/63 07/25/23 15:48 Pulse Ox 97 07/25/23 08:50 O2 Del Method Room Air 07/25/23 04:21 Results Labs OB ([facility]): Obstetrics US 07/10/23 Obstetrics US/Biophysical Profile 07/19/23 Blood Type A Positive 07/22/23 Antibody Screen Negative 07/22/23 Hct 29.8 % (36-47) L 07/25/23 Hgb 9.80 g/dL (11.27-16.99) L 07/25/23 Rho(D) Type Rh positive 07/22/23 Plt Count 304 10^3/cmm (157-399) 07/25/23 Hep Bs Antibody 3.5 (11.5-1000) L 07/25/22 Rubella IgG Antibody 177.3 IU/mL (0.0-10.0) H 07/25/22 VZV IgG Antibody 330.00 index 07/25/22 Discharge Plan Discharge Patient Disposition: Home Condition: Stable Prescriptions: New docusate sodium 100 mg Capsule 100 mg PO BID Qty: 60 0RF ferrous sulfate 325 mg (65 mg iron) Tablet,Delayed Release (Dr/Ec) 325 mg PO DAILY Qty: 90 0RF ibuprofen 800 mg Tablet 800 mg PO TID Qty: 90 0RF Continued Lexapro 1 tab PO DAILY bupropion HCl Discontinued Pepcid Discharge Orders: Discharge Order (Routine); Ordered 07/25/23 Ordered By: Rylee Vaz Referrals: Rylee Vaz, [Primary Care Provider] - 2 weeks (please follow up with Dr. Vaz in 2 weeks and in 6 weeks. ) Discharge Diet: Usual diet Discharge Activity: Increase activity as tolerated Patient Instructions: Depression (DC), Preeclampsia and Eclampsia After Delivery (GEN), Hemorrhage (DC), OB Discharge Report, OB Food/Drug Interaction Guide, OB Home Care Instructions, OB Care at Home, Opioid Safety, OB Home Care, OB Vaginal Deliveries, Abnormal Bleeding Activity Restrictions/Additional Instructions: Follow-up with Dr. Vaz at [facility] at 2 and 6 weeks Discharge Attestations PERFORMING [employer] RO[address] MANAGER Time Spent in Discharge Care*: greater than 30 min Coding Level of Care Code Acute Code for Chg Fwd Diagnoses hemorrhage O72.1 Retained placenta O73.0 Spontaneous vaginal delivery O80 Prolonged rupture of membranes, delivered
[2023-07-25] MEDS: escitalopram 10 mg Tablet 5 MG PO (21:31)
[2023-07-25] MEDS: buPROPion XL (24 HR) 150 mg Tablet PO (21:31)
== END 2023-07-25 22:00 | disposition home or self-care (01) | DRG 807 ==
LOC: OPOB 13:29 → OBGYN 13:29
PROVIDERS: Obstetrics & Gynecology; Admitting Provider Family Medicine; PCP Family Medicine; Visit Provider Family Medicine
PROC: 10D17Z9 Manual Extraction of Products of Conception, Retained, Via Natural or Artificial Opening (ICD-10-PCS; CPT 58120; principal; 2023-07-23 21:30)
DX: O99.213 Obesity complicating pregnancy, third trimester (principal); Z37.0 Single live birth; O72.2 Delayed and secondary postpartum hemorrhage; O99.344 Other mental disorders complicating childbirth; F32.A Depression, unspecified; F41.9 Anxiety disorder, unspecified; Z3A.37 37 weeks gestation of pregnancy
CPT/HCPCS: 36415; 36430; 51702; 59025; 59409; 83986; 85025; 85384; 85730; 86850; 86900; 86920; 86927; 88307; 96374; 96376; 99211; A4216; J0330; J0690; J1100; J1885; J2405; J2590; J2704; J2795; J3010; J7030; J7120; J7121; P9016; P9017; P9040

== ENCOUNTER 2024-07-07 15:05 | Emergency (ER) | payer OTHER, SELFPAY ==
--- NOTE | 2024-07-07 15:06 | XR_ITS ---
WS: [id number] XR knee RT 3V* [id number] REASON FOR EXAM: injury FINDINGS: No acute fracture. The joint spaces of the knee are intact and well preserved. No soft tissue abnormality. XR/XR knee RT 3V* [id number] IMPRESSION: No acute abnormality.
[2024-07-07 15:35] VITALS: BP 129/84; PULSE 70; RESP 16; TEMP 36.7; O2SAT 97
--- NOTE | 2024-07-07 15:59 | W.ED.LOWEXIN ---
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 She states she landed directly onto the right knee and sustained an abrasion. She has been able to ambulate on the extremity without assistance since the fall. No other injuries or complaints at this time. complaint: knee injury Onset (ago): hour(s) Injury: Right: knee Place: work Severity: mild Relieving factors: immobilization Exacerbating factors: weight bearing and movement Context: fall and direct blow Associated symptoms: Reports no associated symptoms Other symptoms: none Related Data Home Medications Medication Instructions Recorded Confirmed Lexapro 05/18/23 1 tab PO DAILY 05/18/23 05/18/23 bupropion HCl 05/18/23 Previous Rx's Medication Instructions Recorded docusate sodium 100 mg capsule 100 mg PO BID #60 caps 07/25/23 ferrous sulfate 325 mg (65 mg 325 mg PO DAILY #90 tabs 07/25/23 iron) tablet,delayed release ibuprofen 800 mg tablet 800 mg PO TID #90 tabs 07/25/23 Allergies Allergy/AdvReac Type Severity Reaction Status Date / Time No Known Allergies Allergy Verified 07/07/24 15:40 Review of Systems Musc: Reports: joint pain (R knee); Denies: neck pain, back pain, extremity pain, extremity swelling, joint swelling, joint redness or joint warmth Neuro: Denies: difficulty walking PFS ED PFSH: Family History Denies family history of Colon cancer Ovarian cancer Prostate cancer Diabetes Heart disease Hypercholesteremia Breast cancer Hypertension Uterine cancer Thyroid disease Stroke Physical Exam Const: COMMON NORMALS: no acute distress, patient oriented x3, no limitations, alert and well nourished Extremity: COMMON NORMALS: full ROM, capillary refill normal, no clubbing, cyanosis or edema, no calf tenderness and no pedal edema GENERAL: Yes normal exam except as noted RIGHT LOWER EXTREMITY: Yes knee joint (mild abrasion R anterior knee; no obvious edema) Right knee: Yes ROM (normal but slight discomfort elicitied) and Yes neurovascular exam (normal) Neuro: COMMON NORMALS: patient oriented x3 SENSORIUM/ORIENTATION: Yes alert Course Vital Signs: Vital signs: Vital Signs Temperature 98.0 F 07/07/24 15:35 Pulse Rate 70 07/07/24 15:35 Respiratory Rate 16 07/07/24 15:35 Blood Pressure 129/84 07/07/24 15:35 Pulse Oximetry 97 07/07/24 15:35 Oxygen Delivery Me thod Room Air 07/07/24 15:35 MDM - Extremity Injury (Lower) Medical Decision Making XR unremarkable. Offered NATALIIA wrap/crutches but patient declines. Will have her follow-up with Worker's Comp. Medical Records I reviewed the patient's medical records. Lab Data Radiology Impressions Knee X-Ray 07/07/24 15:06 IMPRESSION: No acute abnormality. All radiology interpretation(s) finalized by discharge Discharge Plan Discharge Patient Disposition: Home Clinical Impression: Contusion of knee, right Qualifiers: Encounter type: initial encounter Qualified Code(s): S80.01XA - Contusion of right knee, initial encounter Condition: Stable Prescriptions: No Action Lexapro 1 tab PO DAILY bupropion HCl docusate sodium 100 mg Capsule 100 mg PO BID Qty: 60 0RF ferrous sulfate 325 mg (65 mg iron) Tablet,Delayed Release (Dr/Ec) 325 mg PO DAILY Qty: 90 0RF ibuprofen 800 mg Tablet 800 mg PO TID Qty: 90 0RF Discharge Orders: Discharge ED (Routine); Ordered 07/07/24 Ordered By: Shannan Benson Referrals: Rylee Vaz DO [Primary Care Provider] - Activity Restrictions/Additional Instructions: As we discussed, your knee x-ray is unremarkable. Please follow-up with Worker's Comp. for further evaluation/treatment. You may ice and elevate the extremity as well as take [id number] analgesics such as Ibuprofen or Tylenol. 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
[2024-07-07 16:44] VITALS: PULSE 82; O2SAT 99
== END 2024-07-07 16:45 | disposition home or self-care (01) ==
PROVIDERS: Emergency Provider Physician Assistant; PCP Family Medicine
DX: S80.01XA Contusion of right knee, initial encounter (principal); W01.0XXA Fall on same level from slipping, tripping and stumbling without subsequent striking against object, initial encounter
CPT/HCPCS: 73562